=== PATIENT | female | born 1945 ===

== ENCOUNTER 2019-04-09 17:47 | Observation (INO) | payer MEDICARE ==
[~2019-04-09] VITALS: Ht 154.9 cm; Wt 69.8 kg
[2019-04-09] MEDS ORDERED: VENL75ER PO (18:29)
[2019-04-09] MEDS ORDERED: GABA800 PO (18:29)
[2019-04-09] MEDS ORDERED: Prinivil10 MG PO (18:30)
[2019-04-09 19:16] LABS: BASOPHILS ABSOLUTE AUTO 0.07 K/mm3 (0.00-0.23); BASOPHILS PERCENT AUTO 1 % (0-2); EOSINOPHILS ABSOLUTE AUTO 0.28 K/mm3 (0.00-0.68); EOSINOPHILS PERCENT AUTO 4 % (0-6); Hematocrit 36.8 % (33.0-51.0); IMMATURE GRAN ABSOLUTE AUTO 0.02 K/mm3 (0.00-0.10); IMMATURE GRAN PERCENT AUTO 0 % (0-1); LYMPHOCYTES ABSOLUTE AUTO 1.64 K/mm3 (0.84-5.20); LYMPHOCYTES PERCENT AUTO 25 % (21-46); MONOCYTES ABSOLUTE AUTO 0.37 K/mm3 (0.16-1.47); MONOCYTES PERCENT AUTO 6 % (4-13); Mean Corpuscular HGB 30.6 pg (26.0-34.0); Mean Corpuscular HGB Conc 29.9 g/dL (31.5-36.5); Mean Corpuscular Volume 103 fL (80-100); Mean Platelet Volume 10.2 fL (9.1-12.4); NEUTROPHILS ABSOLUTE AUTO 4.11 K/mm3 (1.96-9.15); NEUTROPHILS PERCENT AUTO 63 % (41-73); Platelet Count 366 K/mm3 (150-400); RDW Coefficient Variation 18.1 % (11.7-14.2); RDW Standard Deviation 67.9 fL (35.1-46.3); Red Blood Cell Count 3.59 M/mm3 (3.80-5.20); White Blood Cell Count 6.49 K/mm3 (4.00-11.30)
[2019-04-09 19:44] LABS: Alanine Aminotransfer (ALT/SGP 11 U/L (12-78); Albumin, Blood 3.9 g/dL (3.4-5.0); Alk Phos 81 U/L (50-136); Anion Gap 8 mmol/L (6-16); Aspartate Aminotrans (AST/SGOT 11 U/L (12-37); Bilirubin, Total 0.2 mg/dL (0.1-1.0); Blood Urea Nitrogen 16 mg/dL (8-24); Bun/Creatinine Ratio 20.6 (12.0-20.0); CO2, Blood 23 mmol/L (21-32); Chloride, Blood 110 mmol/L (98-108); Creatinine, Blood 0.78 mg/dL (0.40-1.00); Globulin, Blood 4.1 g/dL (2.2-4.0); Glomerular Filtration Rate >60 (60-); Glucose, Blood 110 mg/dL (70-99); Potassium, Blood 4.3 mmol/L (3.5-5.5); Sodium, Blood 141 mmol/L (136-145)
[2019-04-09 20:52] LABS: Source, Urine Clean Catch
[2019-04-09 20:57] LABS: Blood, Urine 2+ (Neg); Glucose Qualitative, Urine Neg (Neg); Ketones, Urine 1+ (Neg); Leukocyte Esterase, Urine 3+ (Neg); Nitrite, Urine Pos (Neg); Protein, Urine 2+ (Neg); Urobilinogen, Urine NORM (Normal)
[2019-04-09 21:06] LABS: Bilirubin, Urine 1+ (Neg)
[2019-04-09 21:07] LABS: Appearance, Urine Hazy (Clear); Color, Urine Yellow (P-Yellow)
[2019-04-09 21:09] LABS: White Blood Cells, Urine 25-50 /hpf (0-5)
[2019-04-09 21:10] LABS: Red Blood Cells, Urine 0-2 /hpf (0-2)
[2019-04-09 21:11] LABS: Bacteria Many /hpf; Squamous Epithelial Cells Few /hpf (Few)
[2019-04-09 22:23] LABS: International Normalized Ratio 0.97; Prothrombin Time Results 10.3 Sec (9.7-11.5)
[2019-04-10 02:43] LABS: Hematocrit 30.7 % (33.0-51.0); Hemoglobin 9.2 g/dL (11.5-16.0)
[2019-04-10 02:44] LABS: Hematocrit 30.6 % (33.0-51.0); Hemoglobin 9.1 g/dL (11.5-16.0); Mean Corpuscular HGB 29.9 pg (26.0-34.0); Mean Corpuscular HGB Conc 29.7 g/dL (31.5-36.5); Mean Corpuscular Volume 101 fL (80-100); Mean Platelet Volume 9.3 fL (9.1-12.4); Platelet Count 220 K/mm3 (150-400); RDW Coefficient Variation 18.1 % (11.7-14.2); Red Blood Cell Count 3.04 M/mm3 (3.80-5.20); White Blood Cell Count 4.48 K/mm3 (4.00-11.30)
[2019-04-10 03:01] LABS: Alanine Aminotransfer (ALT/SGP 8 U/L (12-78); Albumin, Blood 3.2 g/dL (3.4-5.0); Alk Phos 64 U/L (50-136); Anion Gap 4 mmol/L (6-16); Aspartate Aminotrans (AST/SGOT 6 U/L (12-37); Bilirubin, Total 0.1 mg/dL (0.1-1.0); Blood Urea Nitrogen 13 mg/dL (8-24); Bun/Creatinine Ratio 19.6 (12.0-20.0); CO2, Blood 25 mmol/L (21-32); Calcium, Blood 8.2 mg/dL (8.5-10.1); Chloride, Blood 113 mmol/L (98-108); Creatinine, Blood 0.66 mg/dL (0.40-1.00); Globulin, Blood 3.1 g/dL (2.2-4.0); Glomerular Filtration Rate >60 (60-); Glucose, Blood 86 mg/dL (70-99); Potassium, Blood 3.7 mmol/L (3.5-5.5); Sodium, Blood 142 mmol/L (136-145); Total Protein, Blood 6.3 g/dL (6.4-8.2)
--- NOTE | 2019-04-10 04:16 | NUR ---
Shift summary: Pt admitted around midnight last pm for GI bleed. VSS. Pt experiencing some mid-abdominal constant pain. Fentanyl given with adequate relief. No s/s gi bleeding since admission. Admission completed. Pt on telemetry- sinus rhythm 75. Pt alert, oriented and cooperative.
[2019-04-10 07:23] LABS: Hematocrit 31.2 % (33.0-51.0); Hemoglobin 9.2 g/dL (11.5-16.0)
[2019-04-10 15:56] LABS: Hematocrit 31.8 % (33.0-51.0); Hemoglobin 9.3 g/dL (11.5-16.0)
--- NOTE | 2019-04-10 19:03 | NUR ---
PT IN BED FOR MOST OF THIS SHIFT. PT A/O. PT ALTERNATED WATCHING TV AND SLEEPING THROUGHT THIS SHIFT. PT STANDBY ASSIST TO RESTROOM, FORGETFUL OF IV POLE WHEN RUNNING. PT MEDICATED FOR LOWER ABDOMINAL PAIN THROUGHOUT SHIFT. IN ROOM TO VISIT THIS AFTERNOON. PT CURRENTLY RESTING IN ROOM.
[2019-04-10 22:57] LABS: Hemoglobin 9.2 g/dL (11.5-16.0)
--- NOTE | 2019-04-11 04:28 | NUR ---
SHIFT SUMMARY PT HAD A DROP IN BP AT BEGINNING OF SHIFT. PROVIDER CALLED AND VS WERE REPEATED. PT PAIN TX PER EMAR. PT VSS AT THIS TIME. PT HAS SLEPT COMFORTABLY. PT CURRENTLY SLEEPING AND BREATHING EASY. CALL LIGHT IN REACH.
[2019-04-11 05:08] LABS: BASOPHILS ABSOLUTE AUTO 0.04 K/mm3 (0.00-0.23); BASOPHILS PERCENT AUTO 1 % (0-2); EOSINOPHILS ABSOLUTE AUTO 0.32 K/mm3 (0.00-0.68); EOSINOPHILS PERCENT AUTO 8 % (0-6); Hematocrit 32.1 % (33.0-51.0); Hemoglobin 9.6 g/dL (11.5-16.0); IMMATURE GRAN ABSOLUTE AUTO 0.01 K/mm3 (0.00-0.10); IMMATURE GRAN PERCENT AUTO 0 % (0-1); LYMPHOCYTES ABSOLUTE AUTO 1.37 K/mm3 (0.84-5.20); LYMPHOCYTES PERCENT AUTO 34 % (21-46); MONOCYTES ABSOLUTE AUTO 0.35 K/mm3 (0.16-1.47); MONOCYTES PERCENT AUTO 9 % (4-13); Mean Corpuscular HGB 30.1 pg (26.0-34.0); Mean Corpuscular HGB Conc 29.9 g/dL (31.5-36.5); Mean Corpuscular Volume 101 fL (80-100); Mean Platelet Volume 9.8 fL (9.1-12.4); NEUTROPHILS PERCENT AUTO 49 % (41-73); Platelet Count 219 K/mm3 (150-400); RDW Coefficient Variation 18.1 % (11.7-14.2); Red Blood Cell Count 3.19 M/mm3 (3.80-5.20); White Blood Cell Count 4.09 K/mm3 (4.00-11.30)
[2019-04-11 05:59] LABS: Anion Gap 6 mmol/L (6-16); Blood Urea Nitrogen 14 mg/dL (8-24); Bun/Creatinine Ratio 22.6 (12.0-20.0); CO2, Blood 25 mmol/L (21-32); Calcium, Blood 8.7 mg/dL (8.5-10.1); Chloride, Blood 111 mmol/L (98-108); Creatinine, Blood 0.62 mg/dL (0.40-1.00); Glomerular Filtration Rate >60 (60-); Glucose, Blood 96 mg/dL (70-99); Potassium, Blood 3.9 mmol/L (3.5-5.5); Sodium, Blood 142 mmol/L (136-145)
--- NOTE | 2019-04-11 11:25 | NUR ---
Upon receiving a referral to visit patient, I entered patient's room. Patient tells me that she is concerned about her back and yet is being discharged. I provide prayer that she will be fully checked out before she leaves and that she would be at peace. Before I finish prayer someone from imaging comes in with a wheel chair and states she is taking patient down for an x-ray of her back. Patient smiles and says, "Wow this is an answer to prayer and that I am in aspiration or inspiration." I say that I prefer to be an inspiration. I will continue to remain available to patient and family.
[2019-04-11] MEDS ORDERED: LIDO700A20 TOP (11:26)
[2019-04-11] MEDS ORDERED: CEFP200 PO (11:26)
[2019-04-11] MEDS ORDERED: MELATONIN5 M1 PO (11:27)
[2019-04-11] MEDS ORDERED: Florastor250 MG PO (11:28)
[2019-04-11] MEDS ORDERED: ONDA4ODT PO (11:28)
--- NOTE | 2019-04-11 11:44 | NUR ---
PATIENT TO DISCHARGE WITH HER . SHE HAS NO PCP IN THIS AREA. GIVEN A PACKET TO FOLLOW UP WITH [facility], PER DISCHARGE PLANNING TEAM. EDUCATION REGARDING ESTABALISHING A PCP GIVEN. IV REMOVED. MEDS FAXED TO [facility]. NOTIFIED .
--- NOTE | 2019-04-11 14:12 | NUR ---
UNABLE TO CONTACT . PATIENT DISCHARGED HOME VIA TAXI. STATED HER WOULD TAKE HER TO HEALTH SYSTEM TO FILL HER PRESCRIPTIONS. DISCHARGED VIA W/C TO MAIN ENTRANCE FOR TAXI.
== END 2019-04-11 14:07 | disposition home or self-care (01) ==
LOC: ER 17:47 → MEDS 17:48 → ENPENDDIS 04-11 09:31 → MEDS 04-11 14:07
PROVIDERS: Emergency Medicine; Family Medicine; Physician Assistant; ADMIT Internal Medicine
DX: A41.9 Sepsis, unspecified organism (principal); N39.0 Urinary tract infection, site not specified; E86.0 Dehydration; D64.9 Anemia, unspecified; K92.1 Melena; I10 Essential (primary) hypertension; G62.9 Polyneuropathy, unspecified; Z66 Do not resuscitate; Z79.899 Other long term (current) drug therapy; Z88.2 Allergy status to sulfonamides; Z91.010 Allergy to peanuts
CPT/HCPCS: 36415; 71045; 72040; 80048; 80053; 81001; 82272; 83880; 85014; 85018; 85025; 85027; 85610; 85730; 87077; 87086; 87186; 93005; 93010; 96361; 96365; 96366; 96375; 96376; 97162; 97165; 97530; 99285-25; A9270; C9113; G0378; J0696; J3010; J7030